=== PATIENT | female | born 1935 | race Two or more races ===

== ENCOUNTER 2023-10-15 20:49 | Emergency (ER) | payer MEDICARE ==
[~2023-10-15] VITALS: Ht 160 cm; Wt 47.3 kg
[2023-10-15 20:59] VITALS: TEMP 98.2
[2023-10-15 22:50] VITALS: PULSE 66; RESP 16; O2SAT 97
[2023-10-15] MEDS: LIDOCAINE 5% TRANSDERMAL PATCH TD ONE (23:12)
[2023-10-15 23:15] VITALS: BP 149/66; PULSE 64; RESP 18
== END 2023-10-15 23:56 | disposition home or self-care (01) ==
LOC: EMS 20:49
DX: S20.20XA Contusion of thorax, unspecified, initial encounter (principal); I10 Essential (primary) hypertension; Z88.0 Allergy status to penicillin; W19.XXXA Unspecified fall, initial encounter; Y93.89 Activity, other specified; Y92.89 Other specified places as the place of occurrence of the external cause; Y99.8 Other external cause status
CPT/HCPCS: 99284; 71101; 73610; G0238; 94799; Z7502; Z7610